=== PATIENT | female | born 1990 | race Two or more races ===

== ENCOUNTER 2024-05-11 09:37 | Outpatient (CLI) | payer MEDICAID, SELFPAY ==
[2024-05-11 09:59] VITALS: BP 104/61; PULSE 82; RESP 20; TEMP 37; O2SAT 97
[2024-05-11 10:16] VITALS: BMI 109.9
--- NOTE | 2024-05-11 10:25 | XR_ITS ---
Examination: Biophysical profile, ultrasound Date and time of exam: May 11, 2024 1105 hours INDICATIONS: Pelvic contractions beginning May 08, 2024 Technique: Multiple transabdominal sonographic images of the pelvis abdomen obtained. Attention is directed to the breathing movement, gross body movement, amniotic fluid volume and tone. Findings: Amniotic fluid index 10.5 cm Total biophysical profile is 8 of 8. breathing movement is 2. Gross body movement is 2. tone is 2. Qualitative amniotic fluid volume is 2 Impression: Biophysical profile is 8 of 8.
== END 2024-05-11 12:00 | disposition home or self-care (01) ==
LOC: S4S1 09:43 → S4SX 09:44
PROVIDERS: PCP Family Medicine; Referring Provider Obstetrics & Gynecology; Visit Provider Obstetrics & Gynecology
DX: Z34.83 Encounter for supervision of other normal pregnancy, third trimester (principal); Z36.9 Encounter for antenatal screening, unspecified; Z3A.36 36 weeks gestation of pregnancy
CPT/HCPCS: 59025; 76819

== ENCOUNTER 2024-05-15 09:55 | Outpatient (CLI) | payer MEDICAID, SELFPAY ==
[2024-05-15] VITALS (10 sets, daily range): BP systolic 116–131; BP diastolic 60–76; PULSE 77–88; RESP 18; TEMP 36.8; O2SAT 91–97; BMI 50.2
--- NOTE | 2024-05-15 11:49 | PC.NURSE ---
Patient arrived to triage at 1000 for scheduled NST. Patient denies any LOF, bleeding, decreased movement and contractions. NST reactive. Patient instructed to follow up with OB at next scheduled appt on 05/18/24. Discharged educations reviewed with patient including reasons to return. Patient verbalizes understanding, all questions answered and encouraged.
== END 2024-05-15 11:39 | disposition home or self-care (01) ==
LOC: S4S1 09:58 → S4SX 10:02
PROVIDERS: Referring Provider Student in an Organized Health Care Education/Training Program; Visit Provider Student in an Organized Health Care Education/Training Program
DX: Z34.83 Encounter for supervision of other normal pregnancy, third trimester (principal); Z36.9 Encounter for antenatal screening, unspecified; Z3A.36 36 weeks gestation of pregnancy
CPT/HCPCS: 59025

== ENCOUNTER 2024-05-19 09:57 | Outpatient (CLI) | payer MEDICAID, SELFPAY ==
--- NOTE | 2024-05-19 10:03 | XR_ITS ---
Examination: Biophysical profile, ultrasound Date and time of exam: May 19, 2024 1018 hours INDICATIONS: High risk , history demise age 21 weeks during prior 2021, abdominal pain and contractions beginning one month ago Technique: Multiple transabdominal sonographic images of the pelvis abdomen obtained. Attention is directed to the breathing movement, gross body movement, amniotic fluid volume and tone. Findings: Amniotic fluid index 10.1 cm Total biophysical profile is 8 of 8. breathing movement is 2. Gross body movement is 2. tone is 2. Qualitative amniotic fluid volume is 2 Impression: Biophysical profile is 8 of 8.
[2024-05-19 10:59] VITALS: BP 124/85; PULSE 75
[2024-05-19 13:29] VITALS: BMI 49.8
== END 2024-05-19 11:35 | disposition home or self-care (01) ==
LOC: S4S1 09:58 → S4SX 10:01
PROVIDERS: PCP Nurse Practitioner Family; Referring Provider Obstetrics & Gynecology; Visit Provider Obstetrics & Gynecology
DX: Z34.83 Encounter for supervision of other normal pregnancy, third trimester (principal); Z36.9 Encounter for antenatal screening, unspecified; Z3A.37 37 weeks gestation of pregnancy
CPT/HCPCS: 59025; 76819

== ENCOUNTER 2024-05-22 09:51 | Observation (INO) | payer MEDICAID, SELFPAY ==
[2024-05-22 10:01] VITALS: BP 124/75; PULSE 70
[2024-05-22 10:14] VITALS: BMI 45.3
== END 2024-05-22 10:45 | disposition home or self-care (01) ==
PROVIDERS: Admitting Provider Obstetrics & Gynecology; Visit Provider Obstetrics & Gynecology
DX: Z34.83 Encounter for supervision of other normal pregnancy, third trimester (principal); Z36.9 Encounter for antenatal screening, unspecified; Z3A.37 37 weeks gestation of pregnancy
CPT/HCPCS: 59025; 59899

== ENCOUNTER 2024-05-26 09:31 | Outpatient (CLI) | payer MEDICAID, SELFPAY ==
[2024-05-26] VITALS (8 sets, daily range): BP systolic 109–175; BP diastolic 62–99; PULSE 67–74; RESP 16; TEMP 36.8; O2SAT 98; BMI 50.1
--- NOTE | 2024-05-26 09:37 | XR_ITS ---
Examination: Biophysical profile, ultrasound Date and time of exam: May 26, 2024 1126 hours INDICATIONS: Advanced maternal age, history demise Technique: Multiple transabdominal sonographic images of the pelvis abdomen obtained. Attention is directed to the breathing movement, gross body movement, amniotic fluid volume and tone. Findings: Amniotic fluid index 11.6 cm Total biophysical profile is 8 of 8. breathing movement is 2. Gross body movement is 2. tone is 2. Qualitative amniotic fluid volume is 2 Impression: Biophysical profile is 8 of 8.
== END 2024-05-26 14:20 | disposition home or self-care (01) ==
LOC: S4S1 09:33 → S4SX 09:34
PROVIDERS: Referring Provider Obstetrics & Gynecology; Visit Provider Obstetrics & Gynecology
DX: O09.523 Supervision of elderly multigravida, third trimester (principal); O99.213 Obesity complicating pregnancy, third trimester; E66.9 Obesity, unspecified; O09.293 Supervision of pregnancy with other poor reproductive or obstetric history, third trimester; Z3A.38 38 weeks gestation of pregnancy
CPT/HCPCS: 59025; 76819

== ENCOUNTER 2024-05-29 11:14 | Outpatient (CLI) | payer MEDICAID, SELFPAY ==
[2024-05-29 11:27] VITALS: PULSE 80; O2SAT 97
[2024-05-29 11:29] VITALS: BP 124/76; PULSE 78; RESP 18; TEMP 36.9
[2024-05-29 11:32] VITALS: PULSE 81; O2SAT 98
--- NOTE | 2024-05-29 11:32 | XR_ITS ---
Examination: Biophysical profile, ultrasound Date and time of exam: May 29, 2024 1201 hours INDICATIONS: History demise Technique: Multiple transabdominal sonographic images of the pelvis abdomen obtained. Attention is directed to the breathing movement, gross body movement, amniotic fluid volume and tone. Findings: Amniotic fluid index 8.3 cm Total biophysical profile is 8 of 8. breathing movement is 2. Gross body movement is 2. tone is 2. Qualitative amniotic fluid volume is 2 Impression: Biophysical profile is 8 of 8.
[2024-05-29 11:37] VITALS: PULSE 75; O2SAT 98
[2024-05-29 11:42] VITALS: PULSE 76; O2SAT 98; BMI 50.4
[2024-05-29 11:47] VITALS: PULSE 75; O2SAT 98
== END 2024-05-29 12:52 | disposition home or self-care (01) ==
LOC: S4S1 11:16 → S4SX 11:16
PROVIDERS: Referring Provider Obstetrics & Gynecology; Visit Provider Obstetrics & Gynecology
DX: O09.293 Supervision of pregnancy with other poor reproductive or obstetric history, third trimester (principal); Z3A.38 38 weeks gestation of pregnancy
CPT/HCPCS: 59025; 76819

== ENCOUNTER 2024-06-02 05:20 | Inpatient (IN) | payer MEDICAID, SELFPAY ==
[2024-06-02] VITALS (16 sets, daily range): BP systolic 98–151; BP diastolic 67–97; PULSE 58–86; RESP 12–22; TEMP 2.6–37.1; O2SAT 95–99; BMI 50.5
[2024-06-02] MEDS: RINGERS LACTATED 1000 ML 1,000 ML 999 ML IV (06:00)
[2024-06-02] MEDS: CITRIC ACID/SODIUM CITR 15 ML UDC (BICITRA) 30 ML PO (07:19)
[2024-06-02] MEDS: METOCLOPRAMIDE INJ 5 MG/ML VIAL 2 ML 10 MG IVP (07:20)
[2024-06-02] MEDS: FAMOTIDINE INJ 10 MG/ML VIAL 2 ML 20 MG IV (07:21)
[2024-06-02 07:25] LABS: Collection Type, Urine Clean Catch
[2024-06-02] MEDS: ceFAZolin/D5W 2 GM IV 2 GM/100 ML BAG IV (07:28)
[2024-06-02 07:35] LABS: Basophils # (Auto) 0.1 Thou/mm3 (0.0-0.2); Basophils % (Auto) 1 % (0-2.5); Eosinophils # (Auto) 0.1 Thou/mm3 (0.0-0.5); Eosinophils % (Auto) 1 % (0-10); Hematocrit 35.8 % (36.0-46.0); Hemoglobin 12.7 g/dL (12.0-16.0); Immature Granulocytes % (Auto) 0 % (0-0); Immature Granulocytes Auto 0.02 Thou/mm3 (0.00-0.00); Lymphocytes % (Auto) 28 % (10-50); Mean Corpuscular HGB Conc 35.5 g/dl (31.0-37.0); Mean Corpuscular Hemoglobin 30.9 pg (25.0-35.0); Mean Corpuscular Volume 87 fL (80-100); Monocytes # (Auto) 0.5 Thou/mm3 (0.0-0.8); Monocytes % (Auto) 7 % (0-12); Neutrophils # (Auto) 4.6 Thou/mm3 (1.8-7.7); Neutrophils % (Auto) 64 % (37-80); Nucleated Red Blood Cell % 0 /100 WBC (0); Platelet Count 259 Thou/mm3 (140-440); RDW Standard Deviation 41.1 fL (36.4-46.3); Red Blood Count 4.11 Miln/mm3 (4.00-5.20); White Blood Count 7.2 Thou/mm3 (3.6-11.0)
[2024-06-02 07:45] LABS: Bacteria,Urine Rare; Bilirubin,Urine Negative (Negative); Blood,Urine 1+ (Negative); Calcium Oxalate Crystals,Urine 2+; Color,Urine Yellow (Lt Yel-Yel); Glucose, Urine Negative (Negative); Ketones,Urine 1+ (Negative); Leukocyte Esterase,Urine Positive (Negative); Nitrite,Urine Negative (Negative); PH,Urine 6.5 (5.0-7.0); Protein,Urine 1+ (Neg - Trace); RBC,Urine 11 /hpf (0-3); Specific Gravity,Urine 1.032 (1.001-1.035); Squamous Epithelial Cell,Urine 14 /hpf (0-5); WBC,Urine 11 /hpf (0-5)
[2024-06-02 07:49] LABS: Clarity,Urine Hazy (Clear/Hazy)
[2024-06-02 07:59] LABS: Alanine Aminotransferase 30 U/L (10-49); Albumin/Globulin Ratio 1.5 (1.2-2.2); Alkaline Phosphatase 131 U/L (46-116); Anion Gap 12 (7-16); Aspartate Amino Transferase 34 U/L (0-34); BUN/Creatinine Ratio 12 Ratio (12-20); Bilirubin,Total 0.4 mg/dL (0.3-1.2); Blood Urea Nitrogen 7 mg/dL (9-23); Calcium 9.7 mg/dL (8.3-10.6); Calcium (Corrected) 9.7 mg/dL (8.5-10.1); Carbon Dioxide 18.2 mMol/L (20.0-31.0); Chloride 107 mMol/L (98-107); Creatinine (Component) 0.6 mg/dL (0.6-1.3); Globulin 2.6 gm/dL (2.3-3.5); Glucose 88 mg/dL (74-106); Osmolality,Calculated 270 (275-295); Potassium 3.2 mMol/L (3.4-5.1); Sodium 137 mMol/L (136-145); Total Protein 6.6 gm/dL (5.7-8.2); Uric Acid 6.5 mg/dL (3.1-7.8); eGFR > 60 See Note
[2024-06-02 08:17] LABS: Syphilis Nonreactive (Nonreactive)
--- NOTE | 2024-06-02 08:17 | ESHP_ITS ---
Documentation for date of: 06/02/24 OB Labor/Induct. HPI History of Present Illness : 6 Term pregnancies: 4 pregnancies: 1 Living children: 4 History of Abortions: Spontaneous and Elective: 0 History of sections: Yes (2005 2008 2011 2020) History of : No Date of last menstrual period: 09/02/23 Gestational age based on last menstrual period: 37 History of present illness: 34-year-old -0-1-4 at 39 weeks 1 day, history of 4 previous sections. Patient presented to labor and delivery for her scheduled repeat low- transverse section with bilateral salpingectomy. Patient has no other complaints on presentation. All available records were scanned and reviewed History of Present Adequate Care: Yes Labs Labs: Negative: Hepatitis B, HIV, Chlamydia and Gonorrhea and Unknown: Group Beta Strep Review of Systems Review of Systems Systems Reviewed: All systems reviewed, normal except as documented Past Medical History Surgical History SURGICAL: Positive Section (2005 2008 2011 2020) Meds Home Medications and Allergies Home Medications ?Medication ?Instructions ?Recorded ?Confirmed ?Type vit no.95-ferrous 1 tab PO 1XD 05/29/24 06/02/24 History fumarate 28 mg-folic acid 800 mcg tablet () Allergies Allergy/AdvReac Type Severity Reaction Status Date / Time No Known Allergies Allergy Verified 06/02/24 06:21 OB Exam Physical Exam Vital signs: Pulse BP 68 125/77 06/02/24 07:56 06/02/24 07:56 Constitutional Constitutional: no acute distress Routine HEENT Exam Head: Present normocephalic and atraumatic Eye: Present EOMI and PERRL ENT: Present mucous membranes moist Routine Neck Exam Neck: Present supple and trachea midline Routine Cardiovascular Exam Cardiovascular: Present RRR Routine Abdominal Exam Abdominal: Present soft and normoactive bowel sounds Detailed Labor and Delivery Exam Baseline heart rate: 140 monitor accelerations: 15x15 monitor decelerations: None Routine Extremities Exam Extremities: Present full ROM Routine Skin Exam Skin: Present intact, dry and warm Routine Neurological Exam Neurological: Present alert, oriented X3 and CN II-XII intact Routine Psychiatric Exam Psychiatric: Present normal affect and normal thought process OB Results Labs 06/02/24 06:20 06/02/24 06:20 Labs: Short CBC 06/02/24 Range/Units 06:20 WBC 7.2 (3.6-11.0) Thou/mm3 Hgb 12.7 (12.0-16.0) g/dL Hct 35.8 L (36.0-46.0) % Plt Count 259 (140-440) Thou/mm3 BMP 06/02/24 06:20 Sodium 137 Potassium 3.2 L Chloride 107 Carbon Dioxide 18.2 L BUN 7 L Creatinine 0.6 Glucose 88 Calcium 9.7 Liver Function 06/02/24 Range/Units 06:20 Total Bilirubin 0.4 (0.3-1.2) mg/dL AST 34 (0-34) U/L ALT 30 (10-49) U/L Alkaline Phosphatase 131 H (46-116) U/L Albumin 4.0 (3.5-5.0) gm/dL Urine 06/02/24 Range/Units 07:10 Urine Color Yellow (Lt Yel-Yel) Urine Clarity Hazy (Clear/Hazy) Urine pH 6.5 (5.0-7.0) Ur Specific [place] 1.032 (1.001-1.035) Urine Protein 1+ A (Neg - Trace) Urine Glucose (UA) Negative (Negative) OB Assessment & Plan Assessment and Plan (1) Previous delivery affecting : Status: Acute Assessment and plan: Admit to inpatient status for repeat low transverse IV access, CBC, type and screen, LR at 125, RPR, COVID-19 test GBS negative Ancef 2 g prior to surgery start Holm catheter to drainage SCDs for DVT prophylaxis Anesthesia to preop for spinal anesthesia Scheduled for surgery.
--- NOTE | 2024-06-02 09:15 | ESOP_ITS ---
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 Identity was confirmed by double identifiers and she was placed on the operating table. Spinal anesthesia was administered and she was positioned in the supine position. The abdomen and perineum were prepped in the usual sterile fashion and a Holm catheter was placed to continuous drainage. Sterile drapes were applied. The incision site was tested for adequacy of anesthesia. A Pfannenstiel skin incision was made with a scalpel and carried to the subcutaneous fat up to the rectus fascia. The rectus fascia was incised on either side of the midline and the incisions were extended bilaterally. The fascia was gently dissected off the ventral surface of the rectus muscle both superiorly and inferiorly. The rectus bellies were gently in the midline and the peritoneum was identified and entered bluntly using the surgeon's finger. The peritoneal opening was now stretched to create an adequate opening for access to the uterus. Kelton O-ring retractor was placed for adequate visualization. The anterior surface of the uterus was palpated. The bladder reflection was identified and a Lisa Fong low transverse uterine incision was made in the lower uterine segment taking care to avoid the bladder. Uterine entry was accomplished bluntly and the opening was stretched to create adequate room. The amniotic membranes were now ruptured and clear amniotic fluid was released. The fetus was noted to be in the vertex position. The head was gently elevated out of the maternal pelvis and single loop of nuchal cord was found around the neck. The cord was released and the rest of the shoulders and body were delivered by gentle fundal pressure. Umbilical cord was doubly clamped, divided and the infant was handed over to the waiting team. Cord gas samples were obtained. The placenta was delivered through gentle traction on the umbilical cord. All placental membranes were thoroughly cleaned using multiple dry laparotomy sponges. The uterus was now placed under traction and the hysterotomy angles were grasped using Allis clamps. The hysterotomy was closed using 1 Monocryl in 2 layers, the first layer in a running locked fashion and a second layer in an imbricated fashion. Some hemorrhage was noted from the left lateral segment of the hysterotomy and additional figure of 8 sutures were placed for hemostasis. At this time the patient was once again asked about her desire to proceed with the salpingectomy. She stated that she did indeed want to have the salpingectomy. The Enseal device was utilized to perform a complete salpingectomy, starting on the right side the right fimbria was placed under traction and dissection was carried to the mesosalpinx up to the cornua of the uterus. The same procedure was repeated on the left side. Fallopian tube segments were handed over for pathology. She was noted to have a right paratubal cyst, the cyst was deflated using the Bovie. On the left side she had a simple follicular appearing cyst and this was also deroofed and the cyst fluid was drained. The uterus was now placed back into the peritoneal cavity. The omentum was thoroughly inspected and multiple bleeding points were noted. A combination of electrocautery and 3-0 Vicryl were used to achieve satisfactory hemostasis. The hysterotomy was once again inspected and hemostasis was noted to be satisfactory. The Kelton retractor was now removed. The peritoneal edges were re approximated. The rectus muscles were re approximated. The rectus fascia was now repaired using 0 Vicryl suture in a running fashion. The subcutaneous layer was now copiously irrigated using warm normal saline. All bleeding points were cauterized using the Bovie. The subcutaneous fat was closed using 3-0 Vicryl. The skin was closed using 4-0 Monocryl in a subcuticular fashion. The skin was cleaned and a sterile dressing was applied. The patient was now undraped, the abdomen and back were thoroughly cleaned and she was not transferred to the recovery room in a stable and awake condition. The patient tolerated the entire procedure well. No complications were encountered. All instrument, sponge and lap counts were correct x2. Estimated blood loss (ml): 750 Complications: none Surgical staff Operation Date: 06/02/24 07:45 <No data on this case meets the specified criteria> Diagnosis Discharge Diagnosis (1) Previous delivery affecting : Status: Acute Problem List Completed Was Problem List Reviewed/Reconciled?: Yes
--- NOTE | 2024-06-02 09:20 | PD.LDDELS ---
Data ([facility]) Data Hx Section: Yes (2005 2008 2011 2020) : 6 Term: 4 : 0 : 1 Delivery Data ([facility]) Delivery Data Delivered by: Rene Julien
[2024-06-02] MEDS: OXYTOCIN in NS 20 units 20 UNIT/1,000 ML BAG 125 UNIT IV ×2 (09:30→18:23)
[2024-06-02] MEDS: KETOROLAC INJ 30 MG/ML VIAL IVP ×3 (10:43→22:03)
[2024-06-02] MEDS: DiphenhydrAMINE INJ 50 MG/ML VIAL 25 MG IVP ×2 (12:17→18:27)
[2024-06-02] MEDS: CARBOPROST TROMETH INJ 250 MCG/ML VIAL IM (12:39)
[2024-06-02] MEDS: DIPHENOXYLATE/ATROP SULF 1 TAB PO (12:39)
[2024-06-02] MEDS: SIMETHICONE 80 MG CHEW PO ×2 (17:53→22:03)
[2024-06-03 00:10] VITALS: BP 116/71; PULSE 86; RESP 16; TEMP 37.2; O2SAT 97
[2024-06-03 05:40] VITALS: BP 103/65; PULSE 85; RESP 18; TEMP 36.8; O2SAT 97
[2024-06-03] MEDS: SIMETHICONE 80 MG CHEW PO ×2 (06:06→11:24)
[2024-06-03] MEDS: Milk Of Magnesia Susp 30 ML UDC PO ×2 (06:06→19:36)
[2024-06-03] MEDS: KETOROLAC INJ 30 MG/ML VIAL IVP (06:06)
--- NOTE | 2024-06-03 06:15 | ESPR_ITS ---
Subjective Subjective Interval history: Delivery type: Patient doing well this morning. No acute complaints. Ambulating, tolerating p.o. and voiding without difficulty. HTN/Pre-Eclampsia screen: No chest pain, shortness of breath, headache, visual changes, epigastric or right upper quadrant pain. Breast-feeding, lochia diminishing. Bowel: Flatus+/ BM Exam Vital Signs Temp Pulse Resp BP Pulse Ox O2 Del Method 98.9 F 86 16 116/71 97 Room Air 06/03/24 00:10 06/03/24 00:10 06/03/24 00:10 06/03/24 00:10 06/03/24 00:10 06/03/24 00:10 Constitutional Constitutional: no acute distress Routine HEENT Exam Head: Present normocephalic and atraumatic Eye: Present EOMI and PERRL ENT: Present mucous membranes moist Routine Neck Exam Neck: Present supple and trachea midline Routine Respiratory Exam Respiratory: Present chest non-tender, lungs clear, normal breath sounds and no resp distress Routine Cardiovascular Exam Cardiovascular: Present RRR Routine Abdominal Exam Abdominal: Present soft and normoactive bowel sounds Routine Extremities Exam Extremities: Present full ROM Routine Skin Exam Skin: Present intact, dry and warm Routine Neurological Exam Neurological: Present alert, oriented X3 and CN II-XII intact Routine Psychiatric Exam Psychiatric: Present normal affect and normal thought process Objective Labs 06/02/24 06:20 06/02/24 06:20 Labs: Laboratory Results - last 24 hr 06/02/24 06/02/24 06:20 07:10 WBC 7.2 RBC 4.11 Hgb 12.7 Hct 35.8 L MCV 87 MCH 30.9 MCHC 35.5 RDW Std Deviation 41.1 Plt Count 259 Neut % (Auto) 64 Lymph % (Auto) 28 Williams % (Auto) 7 Eos % (Auto) 1 Baso % (Auto) 1 Neut # (Auto) 4.6 Lymph # (Auto) 2.0 Williams # (Auto) 0.5 Eos # (Auto) 0.1 Baso # (Auto) 0.1 Immature Gran # (Auto) 0.02 H Absolute Nucleated RBC 0.00 Immature Gran % 0 Nucleated RBC % 0 Sodium 137 Potassium 3.2 L Chloride 107 Carbon Dioxide 18.2 L Anion Gap 12 BUN 7 L Creatinine 0.6 Estim Creat Clear Calc 248.0 eGFR > 60 BUN/Creatinine Ratio 12 Glucose 88 Calculated Osmolality 270 L Uric Acid 6.5 Calcium 9.7 Corrected Calcium 9.7 Total Bilirubin 0.4 AST 34 ALT 30 Alkaline Phosphatase 131 H Total Protein 6.6 Albumin 4.0 Globulin 2.6 Albumin/Globulin Ratio 1.5 Ur Collection Type Clean Catch Urine Color Yellow Urine Clarity Hazy Urine pH 6.5 Ur Specific [place] 1.032 Urine Protein 1+ A Urine Glucose (UA) Negative Urine Ketones 1+ A Urine Blood 1+ A Urine Nitrite Negative Urine Bilirubin Negative Urine Urobilinogen (Auto) 2.0 Ur Leukocyte Esterase Positive Urine RBC 11 H Urine WBC 11 H Ur Squamous Epith Cells 14 H Calcium Oxalate Crystal 2+ A Urine Bacteria Rare Syphilis Serology Nonreactive Blood Type O Positive Antibody Screen NEGATIVE Crossmatch See Detail Blood Bank Wristband ID Yes Assessment & Plan Problem List (1) Previous delivery affecting : Status: Acute Assessment and plan: 1. Continue routine /post-op care 2. Labs reviewed, cbc appropriate 3. Remove dressing/Holm 4. Encourage to ambulate, shower 5. Encourage PO intake, breast feeding Time Spent With Patient Time: Total time spent is greater than 50% in coordination of care (as documented) at patient's floor/unit and/or counseling patient:
[2024-06-03 06:54] LABS: Basophils # (Auto) 0.1 Thou/mm3 (0.0-0.2); Basophils % (Auto) 1 % (0-2.5); Eosinophils # (Auto) 0.1 Thou/mm3 (0.0-0.5); Eosinophils % (Auto) 1 % (0-10); Hematocrit 25.5 % (36.0-46.0); Immature Granulocytes % (Auto) 1 % (0-0); Immature Granulocytes Auto 0.06 Thou/mm3 (0.00-0.00); Lymphocytes # (Auto) 2.2 Thou/mm3 (1.0-4.8); Lymphocytes % (Auto) 21 % (10-50); Mean Corpuscular HGB Conc 35.3 g/dl (31.0-37.0); Mean Corpuscular Hemoglobin 31.4 pg (25.0-35.0); Mean Corpuscular Volume 89 fL (80-100); Monocytes # (Auto) 0.7 Thou/mm3 (0.0-0.8); Monocytes % (Auto) 7 % (0-12); Neutrophils # (Auto) 7.5 Thou/mm3 (1.8-7.7); Neutrophils % (Auto) 70 % (37-80); Nucleated Red Blood Cell % 0 /100 WBC (0); Platelet Count 205 Thou/mm3 (140-440); RDW Standard Deviation 42.5 fL (36.4-46.3); Red Blood Count 2.87 Miln/mm3 (4.00-5.20); White Blood Count 10.6 Thou/mm3 (3.6-11.0)
[2024-06-03 07:30] VITALS: BP 108/72; PULSE 90; RESP 16; TEMP 37; O2SAT 97
[2024-06-03] MEDS: DOCUSATE SOD 100 MG CAPSULE PO (07:52)
--- NOTE | 2024-06-03 09:45 | CHAP ---
Wanted a baby blessing, but baby was out and she wanted to do it in English for her . I am passing this to Miguel Angel for a visit this afternoon.
[2024-06-03 11:15] VITALS: BP 129/79; PULSE 85; RESP 15; TEMP 36.7; O2SAT 99
[2024-06-03] MEDS: HYDROcodone/APAP 5/325 TABLET 2 TAB PO ×2 (11:22→19:03)
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
[2024-06-03 15:30] VITALS: BP 115/73; PULSE 83; RESP 16; TEMP 37.1; O2SAT 98
[2024-06-03] MEDS: IBUPROFEN TAB 400 MG TABLET 800 MG PO (18:05)
[2024-06-03 19:30] VITALS: BP 117/75; PULSE 88; RESP 16; TEMP 37.3; O2SAT 97
[2024-06-04] MEDS: IBUPROFEN TAB 400 MG TABLET 800 MG PO (02:44)
[2024-06-04 03:35] VITALS: BP 123/78; PULSE 80; RESP 16; TEMP 36.9; O2SAT 98
[2024-06-04 07:14] VITALS: BP 105/68; PULSE 80; RESP 17; TEMP 36.9; O2SAT 99
[2024-06-04] MEDS: ACETAMINOPHEN 325 MG TABLET 650 MG PO (07:34)
[2024-06-04] MEDS: DOCUSATE SOD 100 MG CAPSULE PO (07:34)
--- NOTE | 2024-06-04 08:03 | PD.LDPPPRG ---
Subjective Subjective Interval history: Delivery type: Patient doing well this morning. No acute complaints. Ambulating, tolerating p.o. and voiding without difficulty. HTN/Pre-Eclampsia screen: No chest pain, shortness of breath, headache, visual changes, epigastric or right upper quadrant pain. Breast-feeding, lochia diminishing. Bowel: Flatus+/ BM+ Exam Vital Signs Temp Pulse Resp BP Pulse Ox O2 Del Method 98.4 F 80 17 105/68 99 Aerosol Mask 06/04/24 07:14 06/04/24 07:14 06/04/24 07:14 06/04/24 07:14 06/04/24 07:14 06/04/24 07:14 Constitutional Constitutional: no acute distress Routine HEENT Exam Head: Present normocephalic and atraumatic Eye: Present EOMI and PERRL ENT: Present mucous membranes moist Routine Neck Exam Neck: Present supple and trachea midline Routine Respiratory Exam Respiratory: Present chest non-tender, lungs clear, normal breath sounds and no resp distress Routine Cardiovascular Exam Cardiovascular: Present RRR Routine Abdominal Exam Abdominal: Present soft and normoactive bowel sounds Routine Extremities Exam Extremities: Present full ROM Routine Skin Exam Skin: Present intact, dry and warm Routine Neurological Exam Neurological: Present alert, oriented X3 and CN II-XII intact Routine Psychiatric Exam Psychiatric: Present normal affect and normal thought process Objective Labs 06/03/24 06:36 06/02/24 06:20 Assessment & Plan Problem List (1) Previous delivery affecting : Status: Acute (2) delivery delivered: Status: Acute Assessment and plan: PPD/POD#2 1. Continue routine care 2. Transition to PO meds. 3. Encourage to ambulate/ breast-feed 4. Anticipate discharge home today. Time Spent With Patient Time: Total time spent is greater than 50% in coordination of care (as documented) at patient's floor/unit and/or counseling patient:
--- NOTE | 2024-06-04 08:04 | PD.LDDS ---
DS: Providers Provider Date of admission: 06/02/24 05:20 Primary care physician: Casimiro Rivera MD Admitting Provider: Rene Julien MD Attending Provider on Admission: Rene Julien MD Consults: 06/02/24 10:06 Referral Routine Comment: Attending Provider on DC: Rene Julien MD Discharging Provider: Rene Julien MD DS: Diagnosis Discharge Diagnosis (1) delivery delivered: Status: Acute (2) Previous delivery affecting : Status: Acute Problem List Completed Was Problem List Reviewed/Reconciled?: Yes Summary/Hosp Course Brief History: 34-year-old -0-1-4 at 39 weeks 1 day, history of 4 previous sections. Patient presented to labor and delivery for her scheduled repeat low-transverse section with bilateral salpingectomy. Patient has no other complaints on presentation. All available records were scanned and reviewed Peripartum Data Procedures: Procedures Operation Date: 06/02/24 07:45 Actual Procedure Side Surgeon p w/tubal OB Rene Julien MD Time Spent with Patient Time attestation: Total time spent providing and/or coordinating discharge services: Exam Vital Signs Temp Pulse Resp BP Pulse Ox O2 Del Method 98.4 F 80 17 105/68 99 Aerosol Mask 06/04/24 07:14 06/04/24 07:14 06/04/24 07:14 06/04/24 07:14 06/04/24 07:14 06/04/24 07:14 Discharge Plan Plan Patient Disposition: HOME (Self Care) Patient condition on transfer: Stable Prescriptions/Referrals Prescriptions/Med Rec: New hydrocodone-acetaminophen 5-325 mg Tablet 1 tab PO Q6HR MDD 4 PRN (Reason: Patient rated pain 9 to 10) 5 Days Qty: 20 0RF docusate sodium 100 mg Capsule 100 mg PO QDAY 30 Days Qty: 30 0RF ibuprofen 400 mg Tablet 800 mg PO Q8HR PRN (Reason: Pain Scale 4-6 (Moderate) 10 Days Qty: 30 0RF Continued PNV cmb#95-ferrous fumarate-FA [] 28 mg iron- 800 mcg tablet 1 tab PO 1XD Patient Comments: TAKE 1 TABLET BY MOUTH EVERY DAY Referrals: Casimiro Rivera MD [Primary Care Provider] - Rene Julien MD [Physician] - Patient/Caregiver Discharge Instructions Meds to Beds: Yes Discharge Activity: activity as tolerated Education Materials: C Section Dc, After a , Feel Healthy After, Breast Care After , : Caring for Yourself Print Language: [place] Stand Alone Forms: Radha Award Info., Patient Portal Info Letter Planned Discharge Date 06/04/24
== END 2024-06-04 11:20 | disposition home or self-care (01) | DRG 539 ==
LOC: S4SX 05:36 → S4NX 08:24
PROVIDERS: Admitting Provider Obstetrics & Gynecology; PCP Family Medicine; Visit Provider Obstetrics & Gynecology
PROC: 0UL70ZZ Occlusion of Bilateral Fallopian Tubes, Open Approach (ICD-10-PCS; CPT 59514; principal; 2024-06-02 07:30)
DX: O34.211 Maternal care for low transverse scar from previous cesarean delivery (principal); Z37.0 Single live birth; Z3A.39 39 weeks gestation of pregnancy; Z30.2 Encounter for sterilization; O69.81X0 Labor and delivery complicated by cord around neck, without compression, not applicable or unspecified; N83.8 Other noninflammatory disorders of ovary, fallopian tube and broad ligament; O34.83 Maternal care for other abnormalities of pelvic organs, third trimester
CPT/HCPCS: 36415; 59409; 80053; 81001; 84550; 85025; 85384; 85610; 85730; 86780; 86850; 86900; 86901; 86923; 94762; A4649; J0689; J1100; J1200; J1885; J2250; J2274; J2405; J2590; J2765; J3490; J7120; A9270; J0690; J2270

== ENCOUNTER 2025-06-05 09:07 | Emergency (ER) | payer MEDICAID, SELFPAY ==
[2025-06-05 09:27] VITALS: BP 133/85; PULSE 64; RESP 19; TEMP 36.9; O2SAT 98; BMI 49.1
--- NOTE | 2025-06-05 10:03 | PD.EDDENTL ---
ED Dental RME/HPI General Chief complaint: Dental/Oral/Throat Stated complaint: Right lower jaw tooth broken/pain Time Seen by Provider: 06/05/25 09:10 Arrival date/time: 06/05/25 09:07 This is a 35-year-old female that comes into the emergency room with complaints of right lower back molar pain. Patient states that she had work done a couple months ago. Patient reports that she had a root canal in that area. Patient is supposed to have more work done but she is waiting until the beginning of the year to get it done because of insurance purposes. Patient denies any fever any chills. Patient denies any other symptoms. Related Data Home Medications ?Medication ?Instructions ?Recorded ?Confirmed vit no.95-ferrous 1 tab PO 1XD 05/29/24 06/02/24 fumarate 28 mg-folic acid 800 mcg tablet () Previous Rx's ?Medication ?Instructions ?Recorded amoxicillin 875 mg-potassium 1 tab PO Q12H #14 tabs 06/05/25 clavulanate 125 mg tablet ibuprofen 800 mg tablet 800 mg PO Q6H PRN pain #20 tabs 06/05/25 Allergies Allergy/AdvReac Type Severity Reaction Status Date / Time No Known Allergies Allergy Verified 06/05/25 09:11 Review of Systems Review of Systems Systems Reviewed: All systems reviewed, normal except as documented Past Medical History Surgical History SURGICAL: Positive Section (2005 2008 2011 2020) ED Exam Narrative Physical exam: VITAL SIGNS: Reviewed. GENERAL APPEARANCE: Alert and interactive, follows commands, no acute distress HEAD AND FACE: Non-traumatic. ENT: PERRL, conjuctiva pink and clear, eyelid no trauma, Mucous membrane moist. Patient's last molar to the right lower jaw appears to be patched up with a white substance from the root canal. I do not see any broken teeth or erythema area just appears to be pink no swelling noted face does not appear swollen at all. NECK: Supple, nontender, no nuchal rigidity. CHEST: No tenderness, no crepitus, no paradoxical movement, no retractions. LUNGS: breathing even and unlabored HEART: Regular rate, cap refill less than 2 seconds ABDOMEN: Soft NEUROLOGICAL: Gross motor function intact sensory function intact, Appropriate for age. MUSCULOSKELETAL: low back nontender, full range of motion. EXTREMITIES: No redness no swelling no skin breakdown on bilateral foot and leg. Distal neurovascular status intact bilateral foot SKIN: Color pink, dry Course Quality Measures none Orders Category Date Time Status HYDROcodone*/APAP 5/325 [[place] 5/325] Med 06/05/25 10:03 Discontinued 1 tab PO X1 ONE Ibuprofen Tab [Motrin Tab] Med 06/05/25 10:03 Discontinued 800 mg PO X1 ONE Vital Signs Vital signs: Vital Signs Temperature 98.4 F 06/05/25 09:27 Pulse Rate 64 06/05/25 09:27 Respiratory Rate 19 06/05/25 09:27 Blood Pressure 133/85 H 06/05/25 09:27 Pulse Oximetry (%) 98 06/05/25 09:27 Oxygen Delivery Method Room Air 06/05/25 09:27 Dental / Oral MDM Narrative MDM Narrative:: I spoke to patient at length. Her tooth does not appear to be infected she does not appear to have cellulitis at this time however because she had worked out in her tooth it could get infected. I told patient to take Tylenol and ibuprofen at home for pain I will prescribe a antibiotic in case her symptoms get worse and it starts appearing erythemic and infected. Patient is going to take the antibiotics if absolutely necessary otherwise just use anti-inflammatories and Tylenol. Patient verbally understanding patient is reports that she has a dental appointment in a couple weeks. Dragon dictation: Although this document has been carefully reviewed, there may still be some phonetic and other typographical errors. These errors are purely grammatical due to imperfections in the software program and should not be construed in any way to compromise the substance of the patient's medical care during this visit. Patient data External records reviewed:: [facility] previous records Clinical information provided by:: patient Social determinants that could affect healthcare access:: none Patient has the following chronic illnesses:: see note How is presenting disease/condition affected by chronic disease/condition?: no chronic disease Evaluation data The following diagnostics were reviewed and interpreted by me:: other (specify) (none) Lab and/or radiology exams considered but not ordered:: see note Interpretation Summary: see note Medications / Prescriptions Medications or Prescriptions considered but not ordered:: none Medication administrations:: Medication Administration History Discontinued Medications Hydrocodone Bitart/Acetaminophen (Hydrocodone/[place] 5/325 Tablet) 1 tab PO X1 ONE Stop: 06/05/25 10:04 Last Admin: 06/05/25 10:13 Dose: 1 tab Documented By: KELLIE Ibuprofen (Ibuprofen Tab 400 Mg Tablet) 800 mg PO X1 ONE Stop: 06/05/25 10:04 Last Admin: 06/05/25 10:13 Dose: 800 mg Documented By: KELLIE see mary Consultations Consultation(s) initiated? (list below): No Diagnosis Most likely diagnosis given after review of the tests above:: see note Admission Indicated Admission indicated?: not indicated Admission Request Was there a request for admission?: No Disposition Plan Disposition Plan: Discharge Discharge Attestation Discharge Attestation: The patient and all family members were given an opportunity to ask questions and understood the discharge instructions. Discharge instructions specifically effects, indications for sooner follow up or return to the emergency department, and the expected course of current diagnosis. Patient condition: Stable Discharge Plan Plan Patient Disposition: HOME (Self Care) Patient condition on transfer: Stable Prescriptions/Referrals Prescriptions/Med Rec: New amoxicillin-pot clavulanate 875-125 mg tablet 1 tab PO Q12H Qty: 14 0RF ibuprofen 800 mg tablet 800 mg PO Q6H PRN (Reason: pain) Qty: 20 0RF No Action PNV no.95-ferrous fumarate-FA [] 28 mg iron- 800 mcg tablet 1 tab PO 1XD Patient Comments: TAKE 1 TABLET BY MOUTH EVERY DAY Problem List Clinical Impression: Pain, dental Patient/Caregiver Discharge Instructions Discharge Activity: activity as tolerated Education Materials: ED Dental Pain Additional Instructions: Follow up with primary provider in 1-2 days. Come back to ED if symptoms change or worsen. Print Language: Sammarinese Stand Alone Forms: Radha Award Info., Patient Portal Info Letter PA/HERACLIO Supervising Physician PAIGE/HERACLIO Supervising Physician: charles
[2025-06-05] MEDS: HYDROcodone/APAP 5/325 TABLET 1 TAB PO (10:13)
[2025-06-05] MEDS: IBUPROFEN TAB 400 MG TABLET 800 MG PO (10:13)
== END 2025-06-05 10:24 | disposition home or self-care (01) ==
LOC: SERX 10:18
PROVIDERS: Emergency Provider Emergency Medicine; PCP Nurse Practitioner Family
DX: K08.89 Other specified disorders of teeth and supporting structures (principal)
CPT/HCPCS: 99281; A9270